=== PATIENT | female | born 1985 | race Asian ===

== ENCOUNTER 2017-12-18 14:17 | Inpatient (IN) | payer OTHER ==
[~2017-12-18] VITALS: Ht 165.1 cm; Wt 99.8 kg
[2017-12-18 14:19] VITALS: BP 178/110
--- NOTE | 2017-12-18 14:23 | NUR ---
PT AMBULATED TO ER BED 06
--- NOTE | 2017-12-18 14:23 | NUR ---
PT PROVIDED WITH UA CUP. UNABLE TO VOID AT THIS TIME.
--- NOTE | 2017-12-18 14:25 | NUR ---
REPORT GIVEN TO ALMA ROSA FLORES.
--- NOTE | 2017-12-18 14:50 | NUR ---
PATIENT PRESENTS TO ED WITH COMPLAINTS OF EPIGASTRIC PAIN THAT RADIATES TO RIGHT SIDE OF MID BACK. PATIENT STATES SHE HAS BEEN IN PAIN X 2 DAYS. PATIENT REPORTS A HX OF KIDNEY STONES. SKIN IS PINK/WARM/DRY; AAOX4 WITH EVEN AND STEADY GAIT; LUNGS CLEAR BL; HR EVEN AND REGULAR; PT DENIES ANY FEVER, CP, SOB, OR COUGH AT THIS TIME; PATIENT STATES PAIN OF 9/10 AT THIS TIME; VSS; PATIENT POSITIONED FOR COMFORT; HOB ELEVATED; BEDRAILS UP X1; BED DOWN. ER MD MADE AWARE OF PT STATUS.
[2017-12-18] MEDS ORDERED: NACL 0.9% 1,000 ML IV SCH (15:21)
[2017-12-18] MEDS ORDERED: HYDROmorphone PFS 2 MG/ML SYR IVP ONE (15:25)
[2017-12-18] MEDS ORDERED: KETOROLAC 30 MG/ML VIAL IVP ONE (15:25)
[2017-12-18] MEDS ORDERED: ONDANSETRON 4 MG/2 ML VIAL IVP ONE (15:25)
[2017-12-18 15:40] LABS: BASOPHILS # (AUTO) 0.1 K/uL (0.00-0.22); BASOPHILS % (AUTO) 0.6 % (0.0-2.0); EOSINOPHILS # (AUTO) 0.2 K/uL (0-0.4); EOSINOPHILS % (AUTO) 1.9 % (0.0-4.0); HEMATOCRIT 41.5 % (36-48); HEMOGLOBIN 13.7 g/dL (12.0-16.0); LYMPHOCYTES # (AUTO) 2.2 K/uL (2.5-16.5); MEAN CORPUSCULAR HEMOGLOBIN 26 pg (27-31); MEAN CORPUSCULAR HGB CONC 33 g/dL (33-37); MEAN CORPUSCULAR VOLUME 78.1 fL (80-94); MONOCYTES # (AUTO) 0.6 K/uL (0.8-1.0); MONOCYTES % (AUTO) 5.8 % (1.7-9.3); NEUTROPHILS # (AUTO) 7.8 K/uL (1.8-7.7); NEUTROPHILS % (AUTO) 71.7 % (42.2-75.2); PLATELET COUNT (AUTO) 239 K/uL (140-450); RED BLOOD CELL COUNT(AUTO) 5.32 MIL/uL (4.20-5.40); RED CELL DISTRIBUTION WIDTH 13.1 % (11.6-13.7); WHITE BLOOD COUNT (AUTO) 10.8 K/uL (4.8-10.8)
[2017-12-18 15:40] LABS: APPEARANCE,URINE CLEAR (CLEAR); BILIRUBIN,URINE NEGATIVE (NEGATIVE); BLOOD, URINE TRACE-I (NEGATIVE); COLOR,URINE YELLOW (YELLOW); LEUKOCYTE ESTERASE ,URINE NEGATIVE (NEGATIVE); NITRITE, URINE NEGATIVE (NEGATIVE); UGLUCOSE NEGATIVE (NEGATIVE)
[2017-12-18 16:03] LABS: ALBUMIN 3.8 g/dL (3.4-5.0); ANION GAP 14.6 (8-16); CARBON DIOXIDE 25.4 mmol/L (21-32); CREATININE 0.9 mg/dL (0.6-1.3); TOTAL BILIRUBIN 0.5 mg/dL (0.0-1.0)
[2017-12-18 16:15] LABS: RBC,URINE 0-5 (RARE) /HPF (0-5); WBC,URINE NONE SEEN /HPF (0-5)
[2017-12-18] MEDS ORDERED: ONDANSETRON 4 MG/2 ML VIAL IVP PRN (16:30)
[2017-12-18] MEDS ORDERED: LORazepam 2 MG/ML VIAL IVP PRN (16:30)
[2017-12-18] MEDS ORDERED: ACETAMINOPHEN 325 MG TAB PO PRN (16:30)
--- NOTE | 2017-12-18 16:45 | NUR ---
Patient will be admitted to care of DR. RODRIGUES. Admited to [facility]. Will go to [facility]. Belongings list completed. Report to SANDRA BOYD.
--- NOTE | 2017-12-18 16:45 | NUR ---
PT CAME IN A RNEY WITH 2 ER NURSES. PT IS AWAKE AND ORIENTED. AMBULATED FROM GURNEY TO BED. INTRODUCED MYSELF AND UPDATE THE BOARD. ROOM AIR, NO SIGNS OF DISTRESS. V/S WITHIN NORMAL RANGE. DENIES PAIN RIGHT NOW. SHE DOES FEEL NAUSEATED FROM NOT EATING FOR 2 DAYS. SKIN IS INTACT. IV ON L AC 20G SL. WILL CONTINUE TO MONITOR PT. WILL START ADMISSION PROCESS.
[2017-12-18 17:00] VITALS: BP 138/79
--- NOTE | 2017-12-18 18:00 | NUR ---
STARTED IVF NS @80ML/HR. TO IV L AC 20G. PT TOLERATED WELL. FINISHED DINNER TRAY OF CLEAR LIQUID. PT DENIES PAIN/N/V. LYING COMFORTABLY IN BED. EDUCATED PT ON USE OF CALL LIGHT. WILL CONTINUE TO MONITOR.
[2017-12-18] MEDS: NACL 0.9% 1,000 ML IV SCH (18:01)
--- NOTE | 2017-12-18 19:30 | NUR ---
ENDORSED PT TO VEGETABLE GRADER NURSE AMY AT BEDSIDE FOR CONTINUITY OF CARE. PT IN STABLE CONDITION.
--- NOTE | 2017-12-18 19:30 | NUR ---
RECEIVED REPORT FROM DAY SHIFT NURSE, ,PT IN BED, RT AT BEDSIDE, INTRODUCED SELF, AND UPDATED BOARD. CALL LIGHT WITHIN REACH. Addendum: 12/18/17 at 2002 by Idalmis Grijalva RN DISREGARD NOTE, WRONG PT. RECEIVED REPORT FROM DAY SHIFT NURSE, PT IN BED, IV ON LEFT AC WITHOUT REDNESS. FRIEND AT BESIDE. NO SIGNS OF DISTRESS.
[2017-12-18 20:00] VITALS: BP 130/76
[2017-12-18] MEDS: PIPERACILLIN/TAZOBACTAM 3.375 GM in DEXTROSE 5% 50 ML IV SCH (21:30)
--- NOTE | 2017-12-18 21:30 | NUR ---
MEDICATION GIVEN, PT TOLERATED WELL, WILL CONTINUE TO MONITOR. CALL LIGHT WITHIN REACH, BED IN LOWEST POSITION. EDUCATION PROVIDED REGARDING HIDA SCAN AND REASON FOR BEING NPO AFTER MIDNIGHT. PT VERBALIZED UNDERSTANDING.
--- NOTE | 2017-12-18 21:33 | NUR ---
TALKED TO [employer] TECH, TECH STATED THAT HIDA SCAN WILL BE DONE AROUND 10AM TOMORROW, PT WILL BE NPO AFTER MIDNIGHT, AND TO HOLD ANY NARCOTICS AFTER MIDNIGHT.
[2017-12-18] MEDS: HYDROcodone/APAP 5/325 MG 1 TAB TAB PO PRN (23:34)
[2017-12-18 23:47] VITALS: BP 142/93
--- NOTE | 2017-12-19 00:05 | NUR ---
PT RESTING IN BED, PAIN BEING MANAGED WITH NORCO, WILL REASSESS ONCE APPROPRIATE, NO SIGNS OF DISTRESS, CALL LIGHT WITHIN REACH. BED IN LOWEST POSITION.
--- NOTE | 2017-12-19 00:48 | NUR ---
CALLED DR HADLEY, REQUESTED PAIN MEDICATION. EXPLAINED PT IS SCHEDULED FOR HIDA SCAN GB VASC FLOW, IS NPO AFTER MIDNIGHT, AND NO OPIOIDS AFTER MIDNIGHT. DR HADLEY ORDERED TYLENOL #3 FOR SEVERE PAIN.
--- NOTE | 2017-12-19 01:05 | NUR ---
PATIENT RESTING ON BED WITH CALL LIGHTS WITHIN REACH. BED IN LOW POSITION. NO S/S OF DISTRESS NOTED AT THIS TIME.
[2017-12-19] MEDS: ACETAMINOPHEN/CODEINE 300/30MG 1 TAB PO PRN ×2 (01:17→14:43)
[2017-12-19] MEDS ORDERED: KETOROLAC 30 MG/ML VIAL IM PRN (03:40)
--- NOTE | 2017-12-19 03:40 | NUR ---
PT IN SEVERE PAIN, LOCATED ON THE UPPER ABDOMEN, RADIATING TO THE BACK. CALLED DR HADLEY, RECEIVED ORDER FOR TORADOL 30 MG IVP Q6H PRN. WILL GIVE ACCORDING TO ALETA FLORES.
[2017-12-19] MEDS: PIPERACILLIN/TAZOBACTAM 3.375 GM in DEXTROSE 5% 50 ML IV SCH (04:01)
[2017-12-19] MEDS: NACL 0.9% 1,000 ML IV SCH ×2 (04:57→07:51)
--- NOTE | 2017-12-19 05:00 | NUR ---
CALLED NUCLEAR MED AT [facility], LEFT MESSAGE, AWAITING FOR CALL BACK
--- NOTE | 2017-12-19 05:10 | NUR ---
CALLED NUCLEAR MED AT [facility], LEFT MESSAGE, AWAITING FOR CALL BACK
--- NOTE | 2017-12-19 05:15 | NUR ---
PT IN BED, APPLIED WARM BLANKET FOR COMFORT, EDUCATION PROVIDED ABOUT PAIN MANAGEMENT USING NON-PHARMACOLOGICAL METHODS. PT VERBALIZED UNDERSTANDING. WILL REINFORCED TEACHING NEEDED. CALL LIGHT WITHIN REACH. BED IN LOWEST POSITION .
--- NOTE | 2017-12-19 05:50 | NUR ---
PT IN ALOT OF PAIN, PT STATED IF SHE IS NOT GETTING ANYTHING SHE WILL CHECK OUT AND GO TO ANOTHER HOSPITAL, PAGED DR. PORTILLO, AWAITING FOR TO CALL BACK
--- NOTE | 2017-12-19 06:00 | NUR ---
PAGED DR. PORTILLO AGAIN, AWAITING FOR TO CALL BACK
--- NOTE | 2017-12-19 06:10 | NUR ---
PAGED DR. PORTILLO AGAIN REGARDING PT, AWAITING FOR TO CALL BACK.
--- NOTE | 2017-12-19 06:15 | NUR ---
CALLED NUCLEAR MED AT [facility] AGAIN, DIRECTOR ELAINE TALKED TO [employer]ING [employer] FORMER MACHINE IN [place]
--- NOTE | 2017-12-19 06:17 | NUR ---
DR. PORTILLO CALLED BACK, NOTIFIED REGARDING PT CONDITION, STATED IF SHE WANTS TO GO LET HER GO.
--- NOTE | 2017-12-19 06:20 | NUR ---
PAGED DR. HADLEY REGARDING PT, IS C/O PAIN, AWAITING FOR TO CALL BACK.
--- NOTE | 2017-12-19 06:45 | NUR ---
[employer] TECH CALLED BACK, STATED THAT SHE CAN NOT COME UNTIL 9-10AM, AND PT CAN NOT HAVE NARCOTICS 8 HRS PRIOR TO HIDA SCAN.
--- NOTE | 2017-12-19 06:47 | NUR ---
PAGED DR. HADLEY, AWAITING FOR TO CALL BACK
--- NOTE | 2017-12-19 06:50 | NUR ---
DR. HADLEY CALLED BACK, NOTIFIED REGARDING PT, STATED IT IS FINE TO LET HER LEAVE.
--- NOTE | 2017-12-19 06:55 | NUR ---
Pt stated that pt wanted to go home ama. Yasmin called Dr Reed and Dr Rodríguez and told Dr Reed and Dr Rodríguez that pt wanted to go ama, Dr Reed and Dr Rodríguez stated "that is ok". Ask pt, at the bedside, and Summer RN [place] about what the reason pt wanted to go home ama, pt stated that Dr Reed talked to the pt that pt will have HIDA tonight and pt will have surgery as an outpatient. Pt asked me why pt has to go back to surgery as an outpatient, told patient that Dr Reed told me in the office that pt will have surgery at 12 noon. And explained to the patient that HIDA scan tech comes from [facility], and last night the tech was not available to do HIDA. HIDA tech will do the HIDA at 10am, which according to the HIDA tech 12 hours after last pain medication, which was given at 2 am. Pt stated that that was miscommunication about Dr Reed explain the care of plan to the patient. Pt will wait for HIDA scan and surgery
--- NOTE | 2017-12-19 07:17 | NUR ---
ENDORSED PT TP DAY SHIFT NURSE, PT STABLE, FAMILY AT BEDSIDE.
--- NOTE | 2017-12-19 07:18 | NUR ---
RECEIVED BEDSIDE REPORT FROM LABORATORY COURIER NURSE. PATIENT IS AWAKE. ALERT AND ORIENTEDX4. PATIENT IS IN PAIN BUT CANNOT HAVE PAIN MEDS D/T HIDA SCAN. EXPLAINED THAT TO THE PATIENT. SHE IS AMBULATORY. SKIN INTACT. IV ON L AC 20G INFUSING NS AT 80ML/HR. IV IS CLEAN, DRY AND INTACT. ANSWERED ALL QUESTIONS AT THIS TIME. BED IN LOW POSITION. CALL LIGHT WITHIN REACH. FAMILY AT BEDSIDE.
[2017-12-19 07:36] LABS: ALBUMIN 3.3 g/dL (3.4-5.0); ANION GAP 13.6 (8-16); CARBON DIOXIDE 24.3 mmol/L (21-32); CREATININE 0.9 mg/dL (0.6-1.3); MAGNESIUM 1.8 mg/dL (1.8-2.4); POTASSIUM 3.9 mmol/L (3.5-5.1); TOTAL BILIRUBIN 1.3 mg/dL (0.0-1.0)
[2017-12-19 07:38] LABS: BASOPHILS % (AUTO) 0.3 % (0.0-2.0); EOSINOPHILS # (AUTO) 0.3 K/uL (0-0.4); EOSINOPHILS % (AUTO) 2.4 % (0.0-4.0); HEMATOCRIT 38.6 % (36-48); HEMOGLOBIN 12.9 g/dL (12.0-16.0); LYMPHOCYTES # (AUTO) 1.9 K/uL (2.5-16.5); LYMPHOCYTES % (AUTO) 17.5 % (20.5-51.1); MEAN CORPUSCULAR HEMOGLOBIN 26 pg (27-31); MEAN CORPUSCULAR HGB CONC 33 g/dL (33-37); MEAN CORPUSCULAR VOLUME 78.5 fL (80-94); MONOCYTES # (AUTO) 0.8 K/uL (0.8-1.0); MONOCYTES % (AUTO) 7.3 % (1.7-9.3); NEUTROPHILS # (AUTO) 7.8 K/uL (1.8-7.7); NEUTROPHILS % (AUTO) 72.5 % (42.2-75.2); PLATELET COUNT (AUTO) 213 K/uL (140-450); RED BLOOD CELL COUNT(AUTO) 4.91 MIL/uL (4.20-5.40); RED CELL DISTRIBUTION WIDTH 13.1 % (11.6-13.7); WHITE BLOOD COUNT (AUTO) 10.8 K/uL (4.8-10.8)
[2017-12-19] MEDS: MORPHINE SULFATE 2 MG/ML SYR IVP PRN ×3 (07:48→15:09)
--- NOTE | 2017-12-19 07:51 | NUR ---
Asked pt if pt still have pain, morning nurse was also in the room. Nurse stated that Dr Reed cancelled HIDA. Pt and stated that Dr Reed came and told pt and that HIDA was cancelled by Dr Reed, and surgery will be postponed until 4 or 5 pm. Patient got upset that Dr Reed postponed the surgery until late afternoon, offer apologize about that. Asked the nurse to get pain medication. Pt and stated that there was miscommunication between Dr Reed, the nurse, and patient and
--- NOTE | 2017-12-19 07:56 | NUR ---
DR PORTILLO CANCELED HIDA SCAN. HE STATED IT WAS OK TO GIVE PAIN MEDS. PAIN MED GIVEN. PATIENT TOLERATED WELL. IV IS CLEAN, DRY AND INTACT. WILL CONTINUE TO MONITOR THE PATIENT
[2017-12-19 08:00] VITALS: BP 160/82
[2017-12-19] MEDS: ENOXAPARIN 40 MG/0.4 ML SYR SUBQ SCH (08:36)
--- NOTE | 2017-12-19 08:36 | NUR ---
PATIENT HAS BEEN SCREENED AND CATEGORIZED HIGH NUTRITION RISK. PATIENT WILL BE SEEN WITHIN 1-2 DAYS OF ADMISSION. 12/19/17 12/20/[address]
[2017-12-19] MEDS: HYDROcodone/APAP 5/325 MG 1 TAB TAB PO PRN ×2 (10:08→13:56)
--- NOTE | 2017-12-19 10:29 | NUR ---
PATIENT COMPLAINS OF PAIN AGAIN. ADMINISTERED PAIN MEDS. WILL REASSESS PAIN LEVEL. PATIENT AMBULATED TO THE RESTROOM. GAIT IS STEADY. WILL CONTINUE TO MONITOR THE PATIENT.
--- NOTE | 2017-12-19 12:09 | NUR ---
PATIENT IS SLEEPING. NO SIGNS OF DISTRESS. WILL CONTINUE TO MONITOR THE PATIENT. BED IN LOW POSITION. CALL LIGHT WITHIN REACH.
--- NOTE | 2017-12-19 13:54 | NUR ---
INITIAL CLINICAL REVIEW FAXED TO [facility] FAX [phone]
[2017-12-19] MEDS: PIPER/TAZO 3.375GM/D5W PREMIX 50 ML IV SCH ×2 (13:59→21:35)
--- NOTE | 2017-12-19 14:04 | NUR ---
ADMINISTERED MEDS. PATIENT TOLERATING WELL. IV IS CLEAN, DRY AND INTACT. BED IN LOW POSITION. WILL CONTINUE TO MONITOR THE PATIENT.
--- NOTE | 2017-12-19 16:06 | NUR ---
PATIENT LEFT FOR SURGERY IN STABLE CONDITION. GAVE BEDSIDE REPORT TO OR NURSES. WILL AWAIT PATIENT ARRIVAL BACK
[2017-12-19] MEDS ORDERED: BUPIVACAINE-MPF 0.5% 30 ML VIAL INJ ONE (16:23)
--- NOTE | 2017-12-19 16:29 | NUR ---
12/19/17 RD INITIAL ASSESSMENT COMPLETED PLEASE REFER TO NUTRITION ASSESSMENT UNDER CARE ACTIVITY FOR ESTIMATED NUTRITIONAL NEEDS. 1. ADVANCE TO CLEAR LIQUID DIET S/P CHOLECYSTECTOMY TOLERATED 2. WHEN/IF PT MEDICALLY STABLE TO BEGIN NUTRITION, CONSIDER ADVANCE DIET TOLERATED TO BRAT DIET 3. FOLLOW-UP NUTRITION EDUCATION ON DIET S/P CHOLECYSTECTOMY AND WEIGHT LOSS 4. RD TO FOLLOW-UP 3-5 DAYS, MODERATE RISK JULIENNE HEREDIA RD
[2017-12-19] MEDS ORDERED: NEOSTIGMINE 1:1000 10 MG/10 ML VIAL ONE (16:30)
[2017-12-19] MEDS ORDERED: ROCURONIUM 50 MG/5 ML VIAL IV ONE (16:30)
[2017-12-19] MEDS ORDERED: DEXAMETHASONE 4 MG/ML VIAL ONE (16:30)
[2017-12-19] MEDS ORDERED: PROPOFOL 200 MG/20 ML VIAL IV ONE (16:30)
[2017-12-19] MEDS ORDERED: KETOROLAC 30 MG/ML VIAL ONE (16:30)
[2017-12-19] MEDS ORDERED: ONDANSETRON 4 MG/2 ML VIAL ONE (16:30)
[2017-12-19] MEDS ORDERED: GLYCOPYRROLATE 0.2 MG/ML VIAL ONE (16:30)
[2017-12-19] MEDS ORDERED: DESFLURANE 240 ML BTL INH ONE (16:30)
[2017-12-19] MEDS ORDERED: fentaNYL 0.05 MG/ML VIAL ONE (16:39)
[2017-12-19] MEDS ORDERED: HYDROmorphone PFS 2 MG/ML SYR ONE (16:39)
[2017-12-19] MEDS ORDERED: HYDROmorphone 1 MG/ML AMP IVP PRN ×2 (17:45→18:35)
[2017-12-19] MEDS ORDERED: ONDANSETRON 4 MG/2 ML VIAL IVP PRN (17:45)
[2017-12-19] MEDS ORDERED: ONDANSETRON 4 MG/2 ML VIAL IV PRN (18:35)
[2017-12-19] MEDS ORDERED: HYDROcodone/APAP 5/325 MG 1 TAB TAB PO PRN (18:35)
[2017-12-19] MEDS ORDERED: MORPHINE SULFATE 2 MG/ML SYR IVP PRN (18:35)
[2017-12-19] MEDS ORDERED: ACETAMINOPHEN 325 MG TAB PO PRN (18:35)
[2017-12-19] MEDS ORDERED: MORPHINE SULFATE 4 MG/ML SYR IV PRN (18:35)
[2017-12-19 18:50] VITALS: BP 138/77
--- NOTE | 2017-12-19 18:50 | NUR ---
PATIENT BACK FROM OR IN STABLE CONDITION. VITALS ARE WITHIN NORMAL LIMITS. DRESSING IS CLEAN, DRY AND INTACT. WILL CONTINUE TO MONITOR THE PATIENT.
--- NOTE | 2017-12-19 19:10 | NUR ---
SEEN PATIENT AWAKE ON BED JUST CAME BACK FROM OR. PLACE PATIENT IN COMFORTABLE POSITION. PATIENT AOX4, CALL LIGHT WITHIN REACH. BED IN LOW POSITION. WILL CONTINUE TO MONITOR.
--- NOTE | 2017-12-19 19:10 | NUR ---
GAVE BEDSIDE REPORT TO AREA COORDINATOR NURSE. PATIENT ENDORSED IN STABLE CONDITION.
--- NOTE | 2017-12-19 21:20 | NUR ---
SEEN PATIENT ASLEEP ON BED. BED IN LOW POSITION. CALL LIGHT WITHIN REACH. MEDICATION GIVEN. V/S WNL. NO COMPLAINS OF PAIN AT THIS TIME. WILL CONTINUE TO MONITOR.
--- NOTE | 2017-12-19 23:15 | NUR ---
CHECKED PATIENT ASLEEP ON BED WITH CALL LIGHTS WITHIN REACH. BED IN LOW POSITION. NO COMPLAIN OF PAIN AT THIS TIME. WILL CONTINUE TO MONITOR.
[2017-12-20] VITALS: BP 137/78
--- NOTE | 2017-12-20 02:54 | NUR ---
PAIN MEDICATION GIVEN TO PATIENT. PATIENT ASSISTED BY ORE CHARGER TO THE BATHROOM. PATIENT TOLERATED WELL. BED IN LOW POSITION.
[2017-12-20] MEDS: NACL 0.9% 1,000 ML IV SCH (02:57)
[2017-12-20] MEDS: PIPER/TAZO 3.375GM/D5W PREMIX 50 ML IV SCH ×2 (04:05→13:46)
--- NOTE | 2017-12-20 04:33 | NUR ---
SEEN PATIENT ASLEEP ON BED WITH CALL LIGHTS WITHIN REACH. WILL CONTINUE TO MINOR.
[2017-12-20 06:55] LABS: BASOPHILS % (AUTO) 0.4 % (0.0-2.0); EOSINOPHILS % (AUTO) 0.1 % (0.0-4.0); HEMATOCRIT 36.2 % (36-48); HEMOGLOBIN 12.1 g/dL (12.0-16.0); LYMPHOCYTES # (AUTO) 1.3 K/uL (2.5-16.5); LYMPHOCYTES % (AUTO) 11.4 % (20.5-51.1); MEAN CORPUSCULAR HEMOGLOBIN 26 pg (27-31); MEAN CORPUSCULAR HGB CONC 33 g/dL (33-37); MEAN CORPUSCULAR VOLUME 78.6 fL (80-94); MONOCYTES # (AUTO) 0.7 K/uL (0.8-1.0); MONOCYTES % (AUTO) 6.3 % (1.7-9.3); NEUTROPHILS # (AUTO) 9.1 K/uL (1.8-7.7); NEUTROPHILS % (AUTO) 81.8 % (42.2-75.2); PLATELET COUNT (AUTO) 208 K/uL (140-450); RED BLOOD CELL COUNT(AUTO) 4.61 MIL/uL (4.20-5.40); RED CELL DISTRIBUTION WIDTH 13.2 % (11.6-13.7); WHITE BLOOD COUNT (AUTO) 11.1 K/uL (4.8-10.8)
--- NOTE | 2017-12-20 07:20 | NUR ---
ENDORSEMENT GIVEN TO AM SHIFT FOR CONTINUITY OF CARE. PATIENT IN STABLE CONDITION.
--- NOTE | 2017-12-20 07:25 | NUR ---
RECEIVED REPORT FROM SHOP STEWARD NURSE. PT IS SLEEPING IN BED BUT EASILY AWAKEN, PT IS AAOX4, AMBULATORY, PT IS S/P LAP GEOVANY ON 12/19/17 HAS 3 ABDOMINAL INCISIONS, IV IS ON THE LEFT AC, PATENT, INTACT, FLUSHING WELL, NO S/S OF RESPIRATORY DISTRESS OR DISCOMFORT NOTED, DISCUSSED PLAN OF CARE WITH PT, PT VERBALIZED UNDERSTANDING, SAFETY/FALL PRECAUTIONS ARE IN PLACE, CALL LIGHT IS WITHIN REACH, WILL CONTINUE TO MONITOR.
[2017-12-20 07:31] LABS: ANION GAP 14.4 (8-16); CARBON DIOXIDE 23.3 mmol/L (21-32); CREATININE 0.9 mg/dL (0.6-1.3); POTASSIUM 3.7 mmol/L (3.5-5.1)
[2017-12-20 08:00] VITALS: BP 117/70
[2017-12-20] MEDS: ENOXAPARIN 40 MG/0.4 ML SYR SUBQ SCH (08:42)
--- NOTE | 2017-12-20 12:25 | NUR ---
CLINICAL REVIEW FAXED TO [facility] FAX [phone]
--- NOTE | 2017-12-20 13:50 | NUR ---
ADMINISTERED NORCO 5/325MG, 1 TAB, PO FOR PAIN LEVEL 6/10.
[2017-12-20 16:00] VITALS: BP 130/66
[2017-12-20] MEDS ORDERED: ACET-9525 PO (16:52)
[2017-12-20] MEDS ORDERED: ACET-1182 PO (16:52)
--- NOTE | 2017-12-20 18:50 | NUR ---
DISCHARGE INSTRUCTIONS GIVEN, ID WRIST BAND REMOVED, IV REMOVED, CATHETER TIP INTACT. PT STABLE UPON DISCHARGE ACCOMPANIED BY HER BROTHER.
== END 2017-12-20 18:50 | disposition home or self-care (01) | DRG 263 ==
LOC: MED 14:17 → MTU 16:33
PROVIDERS: ADMIT Hospitalist; ATTEND Hospitalist
PROC: 0FT44ZZ Resection of Gallbladder, Percutaneous Endoscopic Approach (ICD-10-PCS; principal; 2017-12-19 16:30)
DX: K80.12 Calculus of gallbladder with acute and chronic cholecystitis without obstruction (principal); K82.1 Hydrops of gallbladder; E66.9 Obesity, unspecified; R94.5 Abnormal results of liver function studies; Z68.35 Body mass index [BMI] 35.0-35.9, adult; Z98.891 History of uterine scar from previous surgery; Z91.018 Allergy to other foods
CPT/HCPCS: 36415; 74150; 76705; 80053; 81001; 81025; 82374; 83690; 83735; 85025; 86886; 86900; 86901; 87081; 88304; 96361; 96374; 96375; 99285; J1100; J1170; J1650; J1885; J2270; J2405; J2543; J2704; J2710; J3010; J3490; J7030; J7060; Q0092

== ENCOUNTER 2018-10-21 04:25 | Emergency (ER) | payer OTHER ==
[~2018-10-21] VITALS: Ht 165.1 cm; Wt 98.0 kg
[~2018-10-21 04:25] MED LIST: ACET-1182 PO; ACET-9525 PO
[2018-10-21 04:38] VITALS: BP 142/96
--- NOTE | 2018-10-21 04:41 | NUR ---
BIB SELF. AAO, REPORTS NVD SINCE SATURDAY. STATES 4 LOOSE BM DAILY. AND 3 EPISODES OF VOMITNG SINCE SATURDAY. REPORTS MEDIAL ABD PAIN, SHARP. ABD SOFT ROUND, NON TENDER. GIVEN GOWN, BED IN LOW LOCKED POSITION. ERMD MADE AWARE OF STATUS HX GALLBLADDER REMOVAL
[2018-10-21] MEDS ORDERED: NACL 0.9% 1,000 ML IV ONE (04:50)
[2018-10-21] MEDS ORDERED: ONDANSETRON 4 MG/2 ML VIAL IVP ONE (04:50)
[2018-10-21] MEDS ORDERED: KETOROLAC 30 MG/ML VIAL IVP ONE (04:50)
--- NOTE | 2018-10-21 04:50 | NUR ---
dr jung at bedside.
[2018-10-21 05:05] LABS: BASOPHILS # (AUTO) 0.1 K/uL (0.00-0.22); BASOPHILS % (AUTO) 0.5 % (0.0-2.0); EOSINOPHILS # (AUTO) 0.9 K/uL (0-0.4); EOSINOPHILS % (AUTO) 7.6 % (0.0-4.0); HEMATOCRIT 41.1 % (36-48); HEMOGLOBIN 13.5 g/dL (12.0-16.0); LYMPHOCYTES # (AUTO) 2.9 K/uL (2.5-16.5); LYMPHOCYTES % (AUTO) 25.6 % (20.5-51.1); MEAN CORPUSCULAR HEMOGLOBIN 27 pg (27-31); MEAN CORPUSCULAR HGB CONC 33 g/dL (33-37); MEAN CORPUSCULAR VOLUME 81.1 fL (80-94); MONOCYTES # (AUTO) 0.8 K/uL (0.8-1.0); MONOCYTES % (AUTO) 7.4 % (1.7-9.3); NEUTROPHILS # (AUTO) 6.6 K/uL (1.8-7.7); NEUTROPHILS % (AUTO) 58.9 % (42.2-75.2); PLATELET COUNT (AUTO) 249 K/uL (140-450); RED BLOOD CELL COUNT(AUTO) 5.06 MIL/uL (4.20-5.40); RED CELL DISTRIBUTION WIDTH 13.3 % (11.6-13.7); WHITE BLOOD COUNT (AUTO) 11.3 K/uL (4.8-10.8)
[2018-10-21 05:19] LABS: ANION GAP 13.8 (8-16); CARBON DIOXIDE 27.1 mmol/L (21-32); CREATININE 0.8 mg/dL (0.6-1.3); POTASSIUM 3.9 mmol/L (3.5-5.1)
[2018-10-21 05:24] LABS: ALBUMIN 3.7 g/dL (3.4-5.0); TOTAL BILIRUBIN 0.6 mg/dL (0.0-1.0)
--- NOTE | 2018-10-21 05:50 | NUR ---
dr jung at bedside.
[2018-10-21] MEDS ORDERED: ALUMINUM HYD/MAG/SIMETHICONE 30 ML UDC PO ONE (05:55)
[2018-10-21] MEDS ORDERED: PANTOPRAZOLE 40 MG INJ VIAL IVP ONE (05:55)
[2018-10-21] MEDS ORDERED: DICYCLOMINE HCL LIQUID 10 MG/5 ML UDC PO ONE (05:55)
[2018-10-21] MEDS ORDERED: LIDOCAINE VISCOUS 2% 20 ML UDC PO ONE (05:55)
[2018-10-21] MEDS ORDERED: LIDOCAINE VISCOUS 2% 20 ML UDC ONE (06:12)
[2018-10-21 06:38] VITALS: BP 141/85
== END 2018-10-21 06:38 | disposition home or self-care (01) ==
LOC: MED 04:25
DX: K52.9 Noninfective gastroenteritis and colitis, unspecified (principal); R07.9 Chest pain, unspecified; Z91.018 Allergy to other foods; Z79.1 Long term (current) use of non-steroidal anti-inflammatories (NSAID); Z90.49 Acquired absence of other specified parts of digestive tract; Z98.890 Other specified postprocedural states
CPT/HCPCS: 36415; 80053; 81002; 81025; 83690; 85025; 96361; 96374; 96375; 99283; C9113; J1885; J2405; J7030